=== PATIENT | male | born 1955 | race Caucasian/White ===

== ENCOUNTER 2019-06-07 10:35 | Outpatient (CLI) | payer OTHER, SELFPAY ==
[2019-06-07 12:33] LABS: TSH 1.28 uIU/mL (0.36-3.74)
== END 2019-06-07 10:55 ==
PROVIDERS: PCP General Practice; Visit Provider General Practice
DX: E03.9 Hypothyroidism, unspecified (principal)
CPT/HCPCS: 36415; 84443